=== PATIENT | female | born 1950 | race Caucasian/White ===

== ENCOUNTER 2016-12-07 12:55 | Emergency (ER) | payer BC ==
[2016-12-07] MEDS ORDERED: NORMAL SALINE 10 ML SYRINGE FLUSH IVP PRN (13:19)
[2016-12-07] MEDS ORDERED: Sodium Chloride 0.9% 1,000 ML PRIMARY IV ONE (13:19)
[2016-12-07 13:50] LABS: BILIRUBIN,URINE NEGATIVE (NEG); CLARITY,URINE CLEAR (CLEAR); COLOR,URINE YELLOW; GLUCOSE, URINE (UA) NEGATIVE (NEG); NITRATE,URINE NEGATIVE (NEG); OCCULT BLOOD,URINE NEGATIVE (NEG); PROTEIN,URINE NEGATIVE (NEG)
[2016-12-07 13:53] LABS: URINE SAMPLE TYPE CLEAN CATCH URINE
[2016-12-07 14:50] LABS: BASOPHILS # (AUTO) 0.02 10*3/UL; BASOPHILS % (AUTO) 0.2 % (0-1); EOSINOPHILS # (AUTO) 0.16 10*3/UL; EOSINOPHILS % (AUTO) 1.4 % (0-8); HEMATOCRIT 43.7 % (37.0-47.0); HEMOGLOBIN 14.3 g/dL (12.0-16.0); LYMPHOCYTES # (AUTO) 2.45 10*3/uL; MEAN CORPUSCULAR HEMOGLOBIN 31.4 PG (27-31); MEAN CORPUSCULAR HGB CONC 32.7 g/dL (33-37); MEAN PLATELET VOLUME 9.5 FL (7.4-12.2); MONOCYTES # (AUTO) 0.59 10*3/UL (0.3-0.8); MONOCYTES % (AUTO) 5.3 % (5-15); NEUTROPHILS # (AUTO) 7.88 10*3/UL; NEUTROPHILS % (AUTO) 70.9 % (50-80); RED BLOOD COUNT 4.56 10^6/uL (4.20-5.40)
[2016-12-07 14:51] LABS: PLATELET MORPHOLOGY COMMENT NORMAL MORPHOLOGY (NORM); RBC MORPHOLOGY COMMENT NORMAL MORPHOLOGY (NORM); WBC MORPHOLOGY COMMENT NORMAL MORPHOLOGY (NORM)
[2016-12-07 14:59] LABS: BLOOD UREA NITROGEN 14 mg/dL (7-22); EST GLOMERULAR FILTRATION > 60 (>60 ml/min/1.73m(2)); SERUM ALBUMIN 3.8 g/dL (3.5-4.8)
[2016-12-07 15:46] VITALS: TEMP 98.2
[2016-12-07] MEDS ORDERED: HEPARIN 500 UNIT/5 ML SYRINGE FOR CENTRAL LINE IVP ONE (15:53)
--- NOTE | 2016-12-07 16:03 | PDOC ---
General Adult HPI - General Chief Complaint: General Medical Stated Complaint: PROLONGED MOTHBALL EXPOSURE Date Seen by Provider: 12/07/16 Time Seen by Provider: 13:03 Source: POSITIVE: Patient, RN/MD Exam Limitations: POSITIVE: No limitations Nurse's Notes Reviewed & Considered: Yes - History of Present Illness Initial Comment: The patient is a 66-year-old female. Patient was initially seen by a physician esol teacher assistant in the walk-in clinic, who referred the patient here. 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 She states that a electrical maintenance technician in the school district placed some mothballs in her car, apparently thinking that some vermin had gotten into the car. The mothballs were placed in her car 12 days ago. Patient states that she has noticed the strong odor of mothballs in the car and approximately 12 days ago she began to experience some myalgia and easy fatigability. She states that "I feel like I have the flu". She states she has not been in the car for the past 4 days, but her symptoms remain. Some associated headache. Patient has a history of chronic abdominal pain for which she takes tramadol. She underwent a gastric bypass and states she lost 120 pounds. History of hypothyroidism. History of low back pain. She states she has had some nausea but no vomiting, diarrhea, melena, hematochezia, hematemesis , dysuria or hematuria. She does not smoke or use alcohol. Patient has a history of iron deficiency anemia, thought to be secondary to her gastrointestinal bypass, and she does have a subclavian port on the right which is used for iron infusions. Have you received a tetanus shot in the past 10 years?: Yes Body Location Affected: REPORTS: Other (Myalgia, fatigability, nausea) Timing: REPORTS: Constant, Other (As above) Duration: >1 week (12 days) Quality: REPORTS: Other (Myalgia) Context: REPORTS: Other (After being exposed to mothballs as above) Modifying Factors: improves with: Nothing Similar Symptoms Previously: No Recent Care Received: REPORTS: Recently Seen, Treated by MD Any Prior Injuries Related to Current Complaint?: No - Patient Home Medications Home Medications: Home Medications Tramadol HCl [Ultram] 50 mg PO Q4-6H #90 tab 04/24/16 Chlorthalidone 1 unit PO QD #30 tab 05/23/16 Propranolol HCl [Inderal La] 1 cap PO QHS #30 cap 05/30/16 Cyclobenzaprine HCl 1 tab PO BID #20 tab 06/07/16 Pregabalin [Lyrica] 1 cap PO 5XD #450 tab 07/04/16 Trazodone HCl 1 unit ORAL QD #90 tab 08/03/16 Hydrocodone/Acetaminophen [Hydrocodon-Acetaminoph 7.5-325] 1 tab PO Q4-6H #60 tab 12/06/16 Levothyroxine Sodium [Levo-T] 150 mcg PO DAILY 12/07/16 - Patient Allergies Allergies/Adverse Reactions: Allergies Allergy/AdvReac Type Severity Reaction Status Date / Time meperidine HCl [From Demerol] Allergy Severe Anaphylaxis Verified 12/07/16 13:08 erythromycin base Allergy Mild ITCHING Verified 12/07/16 13:08 [Erythromycin Base] morphine Allergy Mild ITCHING Verified 12/07/16 13:08 blueberries Allergy Severe ITCHING Uncoded 12/07/16 13:08 Past Medical History - heen HEENT History: Denies History, Dentures/Partials Cardiovascular History: Denies History Additional Cardiovasular History: LE EDEMA Respiratory History: Denies History Gastrointestinal History: GERD, Other (please comment) Additional Gastrointestinal History: S/P BARIATRIC SX/ MALABSORPTION. GASTRIC BYPASS/ BODY LIFT/ MESS REPAIR OF SKIN REMOVAL (INFECTIONS OF MESH X 2 2013) Genitourinary History: Denies History Endocrine History: Hypothyroidism Additional Endocrine History: STATES NO LEVOTHYROXINE ANY LONGER Musculoskeletal History: Back Pain Prosthesis or Implant: Yes Additional Musculoskeletal History: BACK SURGERY 2009. S1 FUSION 201 1, L3,L4, L5 HARDWARE Neurological History: Migraines Additional Neurological History: MIGRAINE JUN 2014 Blood Disorders: Anemia Additional Blood Disorders History: iron deficiency Psychiatric History: Denies History History of Sexually Transmitted Diseases: No Cancer History: Denies History In Past Year Been Physically Harmed or Verbally Threatened: No History of MDRO: Yes Other Type of MDRO: MRSE History of Other Communicable Diseases: No Tobacco Use: Never Smoker Alcohol Use: Rarely Substance Use Type: None Previous Surgical History: Yes Type / Date of Surgery: GASTRIC BYPASS eldon-en-Y 2003/ELDON-EN-Y /right hemicolectomy and partial small bowel resection 2006 due to volvulus/ BODY LIFT 2005 CYST EXC FROM BACK 8140-2341/L4 AND L5 FUSION WITH HARDWARE ON. L3,L4, L5 2009; R. SCIATIC JOINT/lumbar FUSION WITH 3 RODS 2010 /T&A/ APPENDECTOMY/ AQUILINO 1984 / HYSTERECTOMY 1985 / BILATERAL MASTECOMY 1999 LUMPECTOMIES 1997- 2000 /I&D X2 Anesthesia Reactions: No Malignant Hyperthermia: No Significant Family History: Heart disease, COPD, Hypertension, Lung disease Past Medical History Reviewed: Reviewed - No Changes ROS - Limitations ROS Limitations: No Limitations Constitution: REPORTS: Weakness, Other (Fatigue, myalgia) Cardiovascular: REPORTS: Denies Cardiac Symptoms Respiratory: REPORTS: Denies Resp Symptoms Neurological: REPORTS: Denies Neuro Symptoms Gastrointestinal: REPORTS: Nausea Endocrine: REPORTS: Denies Symptoms Musculoskeletal: REPORTS: Other (Myalgia) Genitourinary: REPORTS: Denies Symptoms Eyes: REPORTS: Denies Symptoms ENT: REPORTS: Denies Symptoms Skin: REPORTS: Denies Skin Symptoms Lympathic: REPORTS: Denies Lympathic Symptoms Immunologic: POSITIVE: Denies Symptoms Psychiatric: POSITIVE: Denies Psych Symptoms General Adult Exam - General Appearance General Appearance: POSITIVE: Alert, Cooperative, No Acute Distress, No Evidence of Trauma - HEENT HEENT: POSITIVE: Head Inspection Nml, Eyes Inspection Nml, Ears Inspection Nml, Nose Inspection Nml, Oral/Dental Inspect. Nml, Pharynx Inspect. Nml, PERRL, EOMI - Pupils Pupil Size: 4 mm: Bilateral (PERRLA) - Neck Neck: POSITIVE: Normal Inspection, Thyroid Normal - Respiratory Respiratory: POSITIVE: No Respiratory Distress, Breath Sounds Normal, Chest Non- Tender - Cardiovascular Cardiovascular: POSITIVE: Regular Rate & Rhythm, No Murmur, No Gallop, PMI Normal Peripheral Pulses: Radial (R): 2+, Radial (L): 2+ - Abdomen Abdomen: Soft: (All Quadrants), Normal Bowel Sounds: (All Quadrants), Denies Tenderness: (All Quadrants), No Splenomegaly: (All Quadrants), No Hepatomegaly: (All Quadrants), No Guarding: (All Quadrants), No Rebound: (All Quadrants), No Palpable Pulse: (All Quadrants), No Palpabale Mass: (All Quadrants), No Distention: (All Quadrants), No Rigidity: (All Quadrants) - Back Back: POSITIVE: Normal Inspection - Skin Skin: POSITIVE: Normal Color, Warm, Dry, No Rash - Extremities Extremity: Non-Tender: (All Extremities), Normal ROM: (All Extremities), Normal Inspection: (All Extremities) - Neurological / Psychological Neurological: POSITIVE: Oriented X3, customs and immigration officer Normal As Tested, Motor Normal, Sensation Normal, 5, 6 General Adult Progress - Results Reviewed by me Lab Results Reviewed: Yes (CBC, CMP, influenza tests, urinalysis, creatine kinase all normal) Lab Results:: Laboratory Results 12/07/16 12/07/16 12/07/16 Range/Units 13:19 14:45 14:48 WBC 11.12 H (4.8-10.8) 10^3/uL RBC 4.56 (4.20-5.40) 10^6/uL Hgb 14.3 (12.0-16.0) g/dL Hct 43.7 (37.0-47.0) % MCV 95.8 (81-99) FL MCH 31.4 H (27-31) PG MCHC 32.7 L (33-37) g/dL RDW Std Deviation 46.1 (39-50) fL RDW Coeff of Lavern 13.4 (11.5-14.5) % Plt Count 203 (140-350) 10*3/uL MPV 9.5 (7.4-12.2) FL Immature Gran % (Auto) 0.2 (0-5) % Neut % (Auto) 70.9 (50-80) % Lymph % (Auto) 22.0 (10-50) % Leon % (Auto) 5.3 (5-15) % Eos % (Auto) 1.4 (0-8) % Baso % (Auto) 0.2 (0-1) % Immature Gran # (Auto) 0.02 10*3/UL Neut # (Auto) 7.88 10*3/UL Lymph # (Auto) 2.45 10*3/uL Leon # (Auto) 0.59 (0.3-0.8) 10*3/UL Eos # (Auto) 0.16 10*3/UL Baso # (Auto) 0.02 10*3/UL WBC Morphology Comment Normal morphology (NORM) Plt Morphology Comment Normal morphology (NORM) RBC Morph Comment Normal morphology (NORM) Sodium 136 (135-145) meq/L Potassium 3.5 L (3.8-5.2) meq/L Chloride 98 (98-112) meq/L Carbon Dioxide 30 (23-33) meq/L Anion Gap 8 (5-20) BUN 14 (7-22) mg/dL Creatinine 0.7 (0.50-1.20) mg/dL Estimated GFR > 60 (>60 ml/min/1.73m(2)) BUN/Creatinine Ratio 20.00 (6-20) Glucose 94 (78-110) mg/dL Calculated Osmolality 282.0 (267-292) mOsm/kg Calcium 9.0 (8.7-10.7) mg/dL Total Bilirubin 0.7 (0.3-1.2) mg/dL AST 24 (8-39) IU/L ALT 25 (9-52) IU/L Alkaline Phosphatase 107 (38-126) IU/L Total Creatine Kinase 57 (30-136) IU/L Total Protein 7.0 (6.1-8.0) g/dL Albumin 3.8 (3.5-4.8) g/dL Globulin 3.2 (2.50-4.10) g/dL Albumin/Globulin Ratio 1.10 L (1.3-2.0) mg/g Ur Collection Type Clean catch urine Urine Color Yellow Urine Clarity Clear (CLEAR) Urine pH 7.0 (5.0-8.5) Ur Specific [place] 1.015 (1.005-1.030) Urine Protein Negative (NEG) mg/dl Urine Glucose (UA) Negative (NEG) mg/dL Urine Ketones Negative (NEG) Urine Occult Blood Negative (NEG) Urine Nitrate Negative (NEG) Urine Bilirubin Negative (NEG) Urine Urobilinogen 1.0 (0.2) EU/dL Ur Leukocyte Esterase Negative (NEG) Ur Culture Indicated? Culture not set - Patient's Progress Pain Medication Addressed: POSITIVE: Not Applicable School/Work Release Addressed: POSITIVE: Not Applicable Re-Examine Time: 15:30 Status: POSITIVE: Unchanged, Re-Examined Antibiotics Given: No - Consult Counseled: POSITIVE: Patient, Family (), RE: Lab Results, RE: DX, RE: Need for F/U Patient Care Time - Estimated PCT Patient Care Time (In Minutes): 50 Vital Signs - Recent Vital Signs Vital Signs: Vital Signs (Last 8 hours) Temp Pulse Resp BP Pulse Ox 12/07/16 12:59 98.2 F 80 18 105/76 86 - VS Reviewed Vital Signs Reviewed: Yes Discharge Clinical Impression: Fatigue, Myalgia Discharge Disposition: Discharged to Home Condition: Stable Patient Instructions Given at Discharge: Musculoskeletal Pain (ED), Fatigue (ED ) Additional Instructions: Your blood and urine tests are all normal. I see no evidence of naphthalene toxicity (naphthalene he has the active ingredient in mothballs). I believe you 're going to be fine. Increase fluids. Rest. Follow-up with your primary care provider if condition worsens. Return here anytime if condition worsens in any way. Follow Up With: ANTONIO MENDOZA [Primary Care Provider] - (Instructions as above. Follow-up with your primary care provider. Return here anytime if condition worsens in any way.)
[2016-12-07 18:37] VITALS: RESP 16
== END 2016-12-07 16:05 | disposition home or self-care (01) ==
LOC: ER 12:55
DX: R53.83 Other fatigue (principal); M79.1 Myalgia; R51 Headache
CPT/HCPCS: 36415; 80053; 81003; 82550; 85025; 87804; 99283; J7030

== ENCOUNTER → 2016-12-26 | Outpatient (CLI) | payer BC ==
[2016-12-26 17:31] LABS: BASOPHILS # (AUTO) 0.03 10*3/UL; BASOPHILS % (AUTO) 0.5 % (0-1); EOSINOPHILS # (AUTO) 0.42 10*3/UL; EOSINOPHILS % (AUTO) 6.9 % (0-8); HEMATOCRIT 46.8 % (37.0-47.0); HEMOGLOBIN 15.2 g/dL (12.0-16.0); LYMPHOCYTES # (AUTO) 2.49 10*3/uL; MEAN CORPUSCULAR HEMOGLOBIN 31.1 PG (27-31); MEAN CORPUSCULAR HGB CONC 32.5 g/dL (33-37); MEAN CORPUSCULAR VOLUME 95.7 FL (81-99); MEAN PLATELET VOLUME 9.5 FL (7.4-12.2); MONOCYTES # (AUTO) 0.45 10*3/UL (0.3-0.8); MONOCYTES % (AUTO) 7.4 % (5-15); NEUTROPHILS # (AUTO) 2.67 10*3/UL; NEUTROPHILS % (AUTO) 43.9 % (50-80); RED BLOOD COUNT 4.89 10^6/uL (4.20-5.40)
[2016-12-26 17:33] LABS: PLATELET MORPHOLOGY COMMENT NORMAL MORPHOLOGY (NORM); RBC MORPHOLOGY COMMENT NORMAL MORPHOLOGY (NORM); WBC MORPHOLOGY COMMENT NORMAL MORPHOLOGY (NORM)
== END ==
LOC: MOB LAB 16:51
PROVIDERS: ATTEND Physician Assistant Medical
DX: E03.9 Hypothyroidism, unspecified (principal); D50.8 Other iron deficiency anemias
CPT/HCPCS: 36415; 84443; 85025

== ENCOUNTER 2017-02-18 15:31 | Emergency (ER) | payer BC ==
[2017-02-18] MEDS: NORMAL SALINE 10 ML SYRINGE FLUSH IVP PRN ×2 (15:40→17:00)
[2017-02-18] MEDS ORDERED: ASPIRIN 81 MG (BABY) CHEWABLE TABLET ONE (15:45)
[2017-02-18] MEDS ORDERED: Sodium Chloride 0.9% 1,000 ML PRIMARY IV ONE (15:49)
[2017-02-18] MEDS ORDERED: ASPIRIN 81 MG (BABY) CHEWABLE TABLET PO ONE (15:50)
--- NOTE | 2017-02-18 15:50 | PDOC ---
Chest Pain HPI - General Chief Complaint: Chest Pain Stated Complaint: CHest pain Date Seen by Provider: 02/18/17 Time Seen by Provider: 15:37 Source: Patient Exam Limitations: POSITIVE: No limitations Nurse's Notes Reviewed & Considered: Yes - History of Present Illness Initial Comments: Patient presents to the emergency department with approximately 30 minutes of chest pain. The pain initially started in her ears. It now has moved into her chest. It is now moving into her right breast region. She describes the pain as a pressure like an elephant is sitting on her. She rates her pain an 8 out of 10. She does report associated dyspnea. She denies a cough. She denies fevers or chills. She denies previous history of angiogram nor stress test. She has a history of gastric bypass. She is morbidly obese. She did have the same pain yesterday and it resolved after about a half an hour. Today the pain concerned her and therefore she came to the emergency department. Patient has a history of chronic pain is on a pain contract. She took tramadol this morning and she states that always helps her pain. Duration: 1/2 hour Severity: Moderate Recently seen/treated/hospitalized: No (patient did have similar pain several months ago and went into urgent care.) Any Prior Injuries Related to Current Complaint?: No - Patient Home Medications Home Medications: Home Medications Chlorthalidone 1 unit PO QD #30 tab 05/23/16 Propranolol HCl [Inderal La] 1 cap PO QHS #30 cap 05/30/16 Hydrocodone/Acetaminophen [Hydrocodon-Acetaminoph 7.5-325] 1 - 2 tab PO 2-3XD # 60 tab 01/26/17 Levothyroxine Sodium [Levo-T] 150 mcg PO DAILY #90 01/26/17 Pregabalin [Lyrica] 1 cap PO 5XD #150 tab 01/26/17 Tramadol HCl 1 tab PO BID #40 tab 01/26/17 Trazodone HCl 1 unit ORAL QD #39 tab 01/26/17 Glucosam & Chondroit-Mv & Min3 [Glucoten Caplet] 1 each PO DAILY 02/18/17 - Patient Allergies Allergies/Adverse Reactions: Allergies Allergy/AdvReac Type Severity Reaction Status Date / Time meperidine HCl [From Demerol] Allergy Severe Anaphylaxis Verified 02/18/17 15:38 erythromycin base Allergy Mild ITCHING Verified 02/18/17 15:38 [Erythromycin Base] morphine Allergy Mild ITCHING Verified 02/18/17 15:38 blueberries Allergy Severe ITCHING Uncoded 02/18/17 15:38 Past Medical History - heen HEENT History: Denies History, Dentures/Partials Cardiovascular History: Denies History Additional Cardiovasular History: LE EDEMA Respiratory History: Denies History Gastrointestinal History: GERD, Other (please comment) Additional Gastrointestinal History: S/P BARIATRIC SX/ MALABSORPTION. GASTRIC BYPASS/ BODY LIFT/ MESS REPAIR OF SKIN REMOVAL (INFECTIONS OF MESH X 2 2013) Genitourinary History: Denies History Endocrine History: Hypothyroidism Additional Endocrine History: STATES NO LEVOTHYROXINE ANY LONGER Musculoskeletal History: Back Pain Prosthesis or Implant: Yes Additional Musculoskeletal History: BACK SURGERY 2009. S1 FUSION 201 1, L3,L4, L5 HARDWARE Neurological History: Migraines Additional Neurological History: MIGRAINE JUN 2014 Blood Disorders: Anemia Additional Blood Disorders History: iron deficiency Psychiatric History: Denies History History of Sexually Transmitted Diseases: No Cancer History: Denies History History of MDRO: Yes Other Type of MDRO: MRSE History of Other Communicable Diseases: No Alcohol Use: Rarely Substance Use Type: None Previous Surgical History: Yes Type / Date of Surgery: GASTRIC BYPASS eldon-en-Y 2003/ELDON-EN-Y /right hemicolectomy and partial small bowel resection 2006 due to volvulus/ BODY LIFT 2005 / 3 CYST EXC FROM BACK 9607-7050/L4 AND L5 FUSION WITH HARDWARE ON. L3,L4, L5 2009; R. SCIATIC JOINT/lumbar FUSION WITH 3 RODS 2010 /T&A/ APPENDECTOMY/ AQUILINO 1984 / HYSTERECTOMY 1985 / BILATERAL MASTECOMY 1999 / 4 LUMPECTOMIES 1997- 2000 /I&D X2 Anesthesia Reactions: No Malignant Hyperthermia: No Significant Family History: Heart disease, COPD, Hypertension, Lung disease ROS - Limitations ROS Limitations: No Limitations Constitution: REPORTS: Denies Symptoms Cardiovascular: REPORTS: Chest Pain Respiratory: REPORTS: Shortness Of Breath. DENIES: Cough Non Productive, Cough Productive, Hurts To Breathe, Wheezing Neurological: REPORTS: Denies Neuro Symptoms Gastrointestinal: REPORTS: Abdominal Pain (Chronic), Nausea. DENIES: Vomitting , Diarrhea, Constipation Endocrine: REPORTS: Denies Symptoms Musculoskeletal: REPORTS: Denies MS Symptoms Genitourinary: REPORTS: Denies Symptoms Eyes: REPORTS: Denies Symptoms ENT: REPORTS: Earache (Bilateral). DENIES: Nose Pain, Nose Bleed, Congestion, Sore Throat, Trouble Swallowing Skin: REPORTS: Denies Skin Symptoms Lympathic: REPORTS: Denies Lympathic Symptoms Immunologic: POSITIVE: Denies Symptoms Psychiatric: POSITIVE: Denies Psych Symptoms Chest Pain Progress - Results Reviewed by me Xrays/CTs/US Reviewed by me: Yes Radiology Findings: CXR - no acute cardiopulmonary disease process by my interpret. Lab Results Reviewed: Yes Lab Results:: Laboratory Results 02/18/17 Range/Units 16:01 WBC 7.36 (4.8-10.8) 10^3/uL RBC 4.74 (4.20-5.40) 10^6/uL Hgb 14.8 (12.0-16.0) g/dL Hct 45.6 (37.0-47.0) % MCV 96.2 (81-99) FL MCH 31.2 H (27-31) PG MCHC 32.5 L (33-37) g/dL RDW Std Deviation 46.7 (39-50) fL RDW Coeff of Lavern 13.5 (11.5-14.5) % Plt Count 239 (140-350) 10*3/uL MPV 9.5 (7.4-12.2) FL Immature Gran % (Auto) 0.1 (0-5) % Neut % (Auto) 45.8 L (50-80) % Lymph % (Auto) 41.4 (10-50) % Angelina % (Auto) 6.9 (5-15) % Eos % (Auto) 4.8 (0-8) % Baso % (Auto) 1.0 (0-1) % Immature Gran # (Auto) 0.01 10*3/UL Neut # (Auto) 3.37 10*3/UL Lymph # (Auto) 3.05 10*3/uL Angelina # (Auto) 0.51 (0.3-0.8) 10*3/UL Eos # (Auto) 0.35 10*3/UL Baso # (Auto) 0.07 10*3/UL WBC Morphology Comment Normal morphology (NORM) Plt Morphology Comment Normal morphology (NORM) RBC Morph Comment Normal morphology (NORM) D-Dimer 0.66 H (0.00-0.59) mg/L Sodium 138 (135-145) meq/L Potassium 3.8 (3.8-5.2) meq/L Chloride 99 (98-112) meq/L Carbon Dioxide 31 (23-33) meq/L Anion Gap 8 (5-20) BUN 18 (7-22) mg/dL Creatinine 0.8 (0.50-1.20) mg/dL Estimated GFR > 60 (>60 ml/min/1.73m(2)) BUN/Creatinine Ratio 22.50 H (6-20) Glucose 80 (78-110) mg/dL Calculated Osmolality 286.0 (267-292) mOsm/kg Calcium 8.6 L (8.7-10.7) mg/dL Troponin I < 0.012 (< 0.040) ng/mL EKG Interpreted/Reviewed By Me:: Yes (sinus tony of 54 bpm, incomplete rbbb, nonspecific T wave changes, No ST ) EKG Interpretation:: POSITIVE: Abnormal EKG (By my interpretation shows sinus bradycardia at 53 bpm with incomplete right bundle-branch block with nonspecific T-wave change and no ST changes.) - Patient's Progress Pain Medication Addressed: POSITIVE: Yes MDM / ED Course: The patient presented to the emergency department with complaints of chest pain today. She was given aspirin which he chewed and tolerated well. This did seem to help her chest pain. Her chest pain did return while in the emergency department and therefore she was given nitroglycerin sublingual. This did not help her chest pain. She did develop a headache from the nitroglycerin and therefore was given Tylenol. This did help. She also was given a half milligram of Ativan which did seem to help her chest pain and anxiety. An EKG was obtained in the emergency department. It was reviewed my by myself. It has nonspecific findings. Full discussion of EKG noted above. Chest x-ray was also obtained today by my interpretation shows no acute cardiothoracic disease process. Labs were also obtained today. Patient does have an elevated d- dimer. Due to the patient's elevated d-dimer and chest pain today a CT A of the patient's chest was obtained looking for pulmonary embolism or other cause of the patient's chest pain. I did review the images and the radiology report and the study was negative for pulmonary emboli. There were several 2-3 mm pulmonary nodules. These will need to be followed up as an outpatient. There is no finding on the patient's chest CT to explain her chest pain today. The patient has a strong family history of coronary artery disease including father and mother who had heart attacks. Father had his youngest heart attack in his 40s. The patient has history of morbid obesity. And has never had a stress test nor an angiogram. I recommended that she be admitted for serial troponins and stress test. I subsequently discussed the case with Dr. Tanner the hospitalist here at [facility]. There is no tech available to do a stress test until Sunday and therefore he recommended the patient be transferred to a higher level of care. I subsequently called the referral Center at [facility] and discussed the case with Dr. Bey. Dr. Bey graciously accepted the patient. The patient will subsequently be transferred via ambulance to [facility]. This was all explained in length in detail to the patient. She expressed understanding of recommendations and was in agreement with transfer. Quality Measure Initiative: CP/AMI: POSITIVE: EKG, ASA Quality Measure Initiative: CAP: POSITIVE: SaO2, VS, CXR or CT Patient Care Time - Estimated PCT Patient Care Time (In Minutes): 55 Vital Signs - Recent Vital Signs Vital Signs: Vital Signs (Last 8 hours) Temp Pulse Resp BP Pulse Ox 02/18/17 15:35 56 L 02/18/17 15:32 97.7 F 57 L 18 130/98 90 - VS Reviewed Vital Signs Reviewed: Yes Discharge Clinical Impression: Chest pain Discharge Disposition: Transferred to Tertiary Care Facility (Transfer decision time 1800 on february 18, 2017 and pelvis thyroid is normal thank you for checked in) Condition: Fair Follow Up With: ANTONIO MENDOZA [Primary Care Provider] - Care Transferred To: Dr. Bey at [facility] Date Decision to Transfer to Another Facility: 02/18/17 Time Decision to Transfer to Another Facility: 18:00
--- NOTE | 2017-02-18 15:59 | EKG ---
[address] [address] Measurements Intervals Elbe Rate: 53 P: 12 MS: 162 QRS: 73 QRSD: 97 T: 4 QT: 413 QTc: 396 Interpretive Statements SINUS BRADYCARDIA INCOMPLETE RIGHT BUNDLE BRANCH BLOCK No previous ECG available for comparison Electronically Signed On 02-18-17 16:52:02 MDT by Pelon Doran [email or web address]
[2017-02-18 16:02] VITALS: RESP 18; TEMP 97.7
[2017-02-18 16:04] LABS: BASOPHILS # (AUTO) 0.07 10*3/UL; EOSINOPHILS # (AUTO) 0.35 10*3/UL; EOSINOPHILS % (AUTO) 4.8 % (0-8); HEMATOCRIT 45.6 % (37.0-47.0); HEMOGLOBIN 14.8 g/dL (12.0-16.0); LYMPHOCYTES # (AUTO) 3.05 10*3/uL; MEAN CORPUSCULAR HEMOGLOBIN 31.2 PG (27-31); MEAN CORPUSCULAR HGB CONC 32.5 g/dL (33-37); MEAN CORPUSCULAR VOLUME 96.2 FL (81-99); MEAN PLATELET VOLUME 9.5 FL (7.4-12.2); MONOCYTES # (AUTO) 0.51 10*3/UL (0.3-0.8); MONOCYTES % (AUTO) 6.9 % (5-15); NEUTROPHILS # (AUTO) 3.37 10*3/UL; NEUTROPHILS % (AUTO) 45.8 % (50-80); RED BLOOD COUNT 4.74 10^6/uL (4.20-5.40)
[2017-02-18 16:06] LABS: PLATELET MORPHOLOGY COMMENT NORMAL MORPHOLOGY (NORM); RBC MORPHOLOGY COMMENT NORMAL MORPHOLOGY (NORM); WBC MORPHOLOGY COMMENT NORMAL MORPHOLOGY (NORM)
[2017-02-18 16:13] LABS: BLOOD UREA NITROGEN 18 mg/dL (7-22); CALCIUM 8.6 mg/dL (8.7-10.7); EST GLOMERULAR FILTRATION > 60 (>60 ml/min/1.73m(2))
[2017-02-18] MEDS ORDERED: NITROGLYCERIN 0.4 MG SL TAB (BOTTLE OF 3) SL ONE (17:13)
--- NOTE | 2017-02-18 17:22 | DI ---
PA /LATERAL CHEST X-RAY, 02/18/2017 3:56 PM : Clinical History: Chest pain. Previous Exam: 02/24/2013. There is no acute soft tissue or bony abnormality. There is an indwelling Mediport inserted from the right subclavian approach. The catheter tip is at the junction of the left brachiocephalic vein in th e superior vena cava. Heart size is normal. Lungs are clear. Mediastinal structures are normal. There are no pulmonary nodules. Reading: Normal chest x-ray. There has been no interval change.
[2017-02-18] MEDS ORDERED: ACETAMINOPHEN 500 MG TABLET PO ONE (17:49)
[2017-02-18] MEDS ORDERED: LORazepam 2 MG/1 ML VIAL IVP ONE ×2 (17:58→18:57)
[2017-02-18] MEDS ORDERED: ONDANSETRON 4 MG/2 ML VIAL IVP ONE (17:59)
--- NOTE | 2017-02-18 18:23 | DI ---
CT ANGIOGRAM OF THE CHEST, 02/18/2017 4:33 PM : Clinical History: Chest pain. Elevated D-dimer test. Previous Exam: None at this facility. Scans are performed from the base of the neck to the lower lung bases following IV administration of 69 mL of Isovue 300. Proprietary automated bolus tracking software was used to verify the timing of t he injection. The base of the neck and thoracic inlet are normal. A Mediport is present on the right side. There ar e no abnormal axillary, supraclavicular, mediastinal, or hilar nodes. The heart is normal. The pulmon ronaldo arteries are normal. There is no pulmonary arterial hypertension. There is no evidence of pulmona ry embolism or pulmonary infarction. No acute infiltrate or effusion is present. There are multiple 2 -3 mm noncalcified nodules in the right middle lobe and the right lower lobe. The updated Fleischner Society guidelines for lung nodules recommend no followup if the patient is considered to be of low r isk for developing lung cancer. A CT scan in 12 months is optional if the patient is high-risk. [employer], this patient does have a Mediport and if this was inserted for treatment of a cancer with known p redilection for developing lung metastases, then a followup scan in 3 months would be recommended. Th e adrenal glands and the spleen and the visualized portions of the liver and pancreas are normal. READIN. Normal CTA of the chest. There are no pulmonary emboli or pulmonary infarcts. 2. There are multiple noncalcified 2-3 mm nodules visualized in the right middle lobe in the right l ower lobe. Depending on the reason for the Mediport catheter, either a followup study in 3 months danilo gianluca no followup (low risk) or an option of followup CT scan in 12 months (high-risk) is recommended. See above.
== END 2017-02-18 19:00 | disposition home or self-care (01) ==
LOC: ER 15:31
DX: R07.9 Chest pain, unspecified (principal); R06.02 Shortness of breath; R11.0 Nausea; R94.31 Abnormal electrocardiogram [ECG] [EKG]; R79.1 Abnormal coagulation profile
CPT/HCPCS: 71020; 71275; 80048; 84484; 85025; 85379; 93005; 93010; 96374; 96375; 96376; 99285; J2060; J2405; J7030